=== PATIENT | female | born 1995 | race Caucasian/White ===

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

== ENCOUNTER → 2017-02-26 | Outpatient (CLI) | payer OTHER, MEDICAID ==
--- NOTE | 2017-02-26 14:48 | RADIOLOGY REPORT (SQ) ---
EXAM DESCRIPTION: HYSTEROSALPINGOGRAM; HYSTERO CATH/INJECTION COMPLETED DATE/TIME: 02/26/2017 2:25 pm REASON FOR STUDY: INFERTILITY (N97.9) N97.9 FEMALE INFERTILITY, UNSPECIFIED COMPARISON: None. PROCEDURE: PRE-PROCEDURE: Procedure was explained to the patient. She was told to expect cramping du ring the procedure, and possible spotting post procedure. PROCEDURE: The cervix was prepped in sterile fashion. Under direct visual inspection, the cervix was cannulated with the hysterosalpingogram catheter and contrast injected. TECHNIQUE: Temporal fluoroscopic images acquired during the procedure stored to PACS. FLUOROSCOPY TIME: 15 seconds 5 images saved to PACS. LIMITATIONS: None. FINDINGS: UTERUS: Bicornuate uterus. RIGHT ADNEXA: Normal size fallopian tube. Free spill of contrast into the peritoneal cavity. LEFT ADNEXA: Normal size fallopian tube. Free spill of contrast into the peritoneal cavity. POST PROCEDURE: The patient tolerated the procedure with no adverse effects. IMPRESSION: Bicornuate uterus. Patent fallopian tubes. COMMENT: Quality ID 145: Final reports for procedures using fluoroscopy that document radiation exp osure indices, or exposure time and number of fluorographic images (if radiation exposure indices are not available) TECHNICAL DOCUMENTATION: JOB ID: [id number] [employer]- All Rights Reserved
== END ==
LOC: RAD 13:16
PROVIDERS: ATTEND Obstetrics & Gynecology
DX: N97.9 Female infertility, unspecified (principal)
CPT/HCPCS: 58340; 74740

== ENCOUNTER 2019-01-11 18:48 | Emergency (ER) | payer OTHER, MEDICAID ==
--- NOTE | 2019-01-11 20:04 | ER Document Report ---
ED Medical Screen (RME) - General Chief Complaint: OB Problem (>20wk) Stated Complaint: VAGINAL BLEEDING Time Seen by Provider: 01/11/19 20:03 Primary Care Provider: KIRA COTTON MD [Primary Care Provider] - Follow up as needed Information source: Patient Notes: Patient presents complaining of vaginal bleeding that started today. Patient is and is 6 weeks . Patient denies any pelvic pain or urinary symptoms. I have greeted and performed a rapid initial assessment of this patient. A comprehensive ED assessment and evaluation of the patient, analysis of test results and completion of the medical decision making process will be conducted by additional ED providers. TRAVEL OUTSIDE OF THE [place] IN LAST 30 DAYS: No - Related Data Allergies/Adverse Reactions: No Known Allergies Allergy (Verified 10/28/16 18:06) Past Medical History Pulmonary Medical History: Denies: Hx Asthma Endocrine Medical History: Denies: Hx Diabetes Mellitus Type 1 Renal/ Medical History: Denies: Hx Peritoneal Dialysis Psychiatric Medical History: Reports: Hx Anxiety, Hx Depression Past Surgical History: Reports: Hx Adenoidectomy, Hx Tonsillectomy - and adenoids - Immunizations Immunizations up to date: Yes Hx Diphtheria, Pertussis, Tetanus Vaccination: Yes - <5 years Physical Exam - Vital signs Vitals: Temp Pulse Resp BP Pulse Ox 98.6 F 85 14 136/71 H 100 01/11/19 18:54 01/11/19 18:54 01/11/19 18:54 01/11/19 18:54 01/11/19 18:54 - General General appearance: Appears well, Alert In distress: None Course - Vital Signs Vital signs: Temp Pulse Resp BP Pulse Ox 98.6 F 85 14 136/71 H 100 01/11/19 18:54 01/11/19 18:54 01/11/19 18:54 01/11/19 18:54 01/11/19 18:54 Doctor's Discharge - Discharge Referrals: KIRA COTTON MD [Primary Care Provider] - Follow up as needed
[2019-01-11 20:25] LABS: ABSOLUTE BASOPHILS # (AUTO) 0.1 10^3/uL (0.0-0.2); ABSOLUTE EOSINOPHILS # (AUTO) 0.4 10^3/uL (0.0-0.6); ABSOLUTE LYMPHOCYTES (AUTO) 3.7 10^3/uL (0.5-4.7); ABSOLUTE MONOCYTES (AUTO) 0.8 10^3/uL (0.1-1.4); ABSOLUTE NEUT (AUTO) 6.9 10^3/uL (1.7-8.2); BASOPHILS % (AUTO) 0.9 % (0-2); EOSINOPHILS % (AUTO) 3.2 % (0-6); HEMATOCRIT 37.8 % (36.0-47.0); HEMOGLOBIN 12.7 g/dL (12.0-15.5); LYMPHOCYTES % (AUTO) 31.4 % (13-45); MEAN CORPUSCULAR HEMOGLOBIN 29.8 pg (27.0-33.4); MEAN CORPUSCULAR HGB CONC 33.7 g/dL (32.0-36.0); MEAN CORPUSCULAR VOLUME 88 fl (80-97); MONOCYTES % (AUTO) 6.5 % (3-13); PLATELET COUNT 339 10^3/uL (150-450); RED BLOOD COUNT 4.27 10^6/uL (3.72-5.28); RED CELL DISTRIBUTION WIDTH 13.9 % (11.5-14.0); TOTAL CELLS COUNTED % (AUTO) 100 %; WHITE BLOOD COUNT 11.8 10^3/uL (4.0-10.5)
[2019-01-11 20:39] LABS: APPEARANCE,URINE SLIGHTLY-CLOUDY; BILIRUBIN,URINE NEGATIVE (NEGATIVE); COLOR,URINE YELLOW; GLUCOSE, URINE NEGATIVE (NEGATIVE); KETONES,URINE NEGATIVE (NEGATIVE); LEUKOCYTE ESTERASE,URINE NEGATIVE (NEGATIVE); NITRITE,URINE NEGATIVE (NEGATIVE); PROTEIN,URINE NEGATIVE (NEGATIVE); URINE SPECIFIC GRAVITY 1.025
--- NOTE | 2019-01-11 23:02 | RADIOLOGY REPORT (SQ) ---
EXAM DESCRIPTION: US TRANSVAGINAL COMPLETED DATE/TME: 01/11/2019 20:03 CLINICAL HISTORY: 23 years, Female, vag bleeding COMPARISON: None. TECHNIQUE: Axial 2-D grayscale images of the pelvis were acquired. Doppler was utilized. LIMITATIONS: None. FINDINGS: Uterus measures 8.9 x 5.5 x 7.3 cm in size. Cervix is closed, measuring 3.0 cm in length. An intrauterine is identified with measurements as follows: Mean sac diameter is 1.62 cm (estimated gestational age is six weeks and three days based on mean sac diameter) Goree-rump length is 0.26 cm (estimated gestational age based on crown-rump length is five weeks and six days) A yolk sac is present. No heart tones are identified. Right ovary measures 2.7 x 2.5 x 2.2 cm in size. It demonstrates normal echogenicity as well as normal low resistance arterial waveforms/venous flow. A normal-appearing follicle is noted about the right ovary, possibly demonstrating peripheral vascularity, most likely indicating a corpus luteal cyst. Left ovary measures 3.4 x 3.0 x 2.3 cm in size. It demonstrates normal echogenicity as well as normal low resistance arterial waveforms/venous flow. No significant free fluid is identified within the pelvis. IMPRESSION: Intrauterine gestational sac, as above described. A pole is identified though no definite heart tones are clearly evident. As such, follow-up pelvic ultrasound is recommended to document the development of a viable intrauterine . copyright 2010 [employer]- All Rights Reserved
--- NOTE | 2019-01-11 23:27 | ER Document Report ---
ED GI/ - General Chief Complaint: Vag Bleeding, +preg <12wks Stated Complaint: VAGINAL BLEEDING Time Seen by Provider: 01/11/19 20:03 Primary Care Provider: KIRA COTTON MD [Primary Care Provider] - Follow up as needed TRAVEL OUTSIDE OF THE [place] IN LAST 30 DAYS: No - HPI Notes: 01/11/19 23:15 This is a 23-year-old female who is G1, P0, about 6 weeks who presents today with a complaint of vaginal bleeding that started today. Patient describes mild bleeding of some spotting. She denies any pelvic pain. She denies any weakness or dizziness. She denies any trauma. Patient was seen by her SOFTWARE APPLICATIONS DESIGNER during the week and had an ultrasound that showed an IUP. She d escribes her symptoms as mild. There are no obvious aggravating or relieving factors. - Related Data Allergies/Adverse Reactions: No Known Allergies Allergy (Verified 10/28/16 18:06) Past Medical History - General Information source: Patient - Social History Smoking Status: Never Smoker Chew tobacco use (# tins/day): No Frequency of alcohol use: None Drug Abuse: None Family History: Reviewed & Not Pertinent Patient has suicidal ideation: No Patient has homicidal ideation: No Pulmonary Medical History: Denies: Hx Asthma Endocrine Medical History: Denies: Hx Diabetes Mellitus Type 1 Renal/ Medical History: Denies: Hx Peritoneal Dialysis Psychiatric Medical History: Reports: Hx Anxiety, Hx Depression Past Surgical History: Reports: Hx Adenoidectomy, Hx Tonsillectomy - and adenoids - Immunizations Immunizations up to date: Yes Hx Diphtheria, Pertussis, Tetanus Vaccination: Yes - <5 years Review of Systems - Review of Systems Gastrointestinal: denies: Abdominal pain Genitourinary: denies: Burning, Dysuria, Discharge, Frequency, Flank pain Female Genitourinary: , Vaginal bleeding. denies: Vaginal discharge, Vaginal odor, Painful intercourse -: Yes All other systems reviewed and negative Physical Exam - Vital signs Vitals: Temp Pulse Resp BP Pulse Ox 98.6 F 85 14 136/71 H 100 01/11/19 18:54 01/11/19 18:54 01/11/19 18:54 01/11/19 18:54 01/11/19 18:54 - General General appearance: Appears well, Alert - Respiratory Respiratory status: No respiratory distress Chest status: Nontender Breath sounds: Normal Chest palpation: Normal - Cardiovascular Rhythm: Regular Heart sounds: Normal auscultation Murmur: No - Abdominal Inspection: Normal Distension: No distension Bowel sounds: Normal Tenderness: Nontender Organomegaly: No organomegaly - Genitourinary Speculum exam: Cervix closed - RN was in processing instructor. Vaginal bleeding: Mild Bimanuel exam: Normal. No: Cervical motion tender, Adnexal tenderness - Neurological Neuro grossly intact: Yes Cognition: Normal Orientation: AAOx4 Marilyn Coma Scale Eye Opening: Spontaneous [place] Coma Scale Verbal: Oriented [place] Coma Scale Motor: Obeys Commands [place] Coma Scale Total: 15 Speech: Normal Motor strength normal: LUE, RUE, LLE, RLE Sensory: Normal - Psychological Associated symptoms: Normal affect, Normal mood Course - Re-evaluation Re-evalutation: 01/11/19 23:16 Differential diagnosis includes threatened AB versus complete AB. Patient has known IUP per history. 2312 Patient is doing well. Labs and imaging reviewed and discussed with patient. She understands that this could still represent an early spontaneous AB in progress. Patient counseled to follow-up with her weave room supervisor on Sunday for repeat hCG and serial hCG quant. She is stable for discharge. - Vital Signs Vital signs: Temp Pulse Resp BP Pulse Ox 98.6 F 85 14 136/71 H 100 01/11/19 18:54 01/11/19 18:54 01/11/19 18:54 01/11/19 18:54 01/11/19 18:54 - Laboratory Result Diagrams: 01/11/19 20:15 Laboratory results interpreted by me: 01/11/19 01/11/19 01/11/19 20:15 20:15 20:15 WBC 11.8 H Beta HCG, Quant 99132.00 H Urine Blood LARGE H Urine Urobilinogen 2.0 H Discharge - Discharge Clinical Impression: Vaginal bleeding during , antepartum Condition: Stable Disposition: HOME, SELF-CARE Instructions: Bleeding During Early ([facility]) Additional Instructions: Follow-up with your weave room supervisor on Sunday as discussed for further evaluation. You will need repeat test to make sure that it is trending up. Referrals: KIRA COTTON MD [Primary Care Provider] - 01/13/19
[2019-01-11 23:35] VITALS: BP 128/63
== END 2019-01-11 23:35 | disposition home or self-care (01) ==
LOC: ER 18:48
DX: O46.90 Antepartum hemorrhage, unspecified, unspecified trimester (principal); Z3A.00 Weeks of gestation of pregnancy not specified
CPT/HCPCS: 36415; 76817; 81001; 84702; 85025; 86900; 86901; 99284